=== PATIENT | female | born 2000 | race African-American/Black ===

== ENCOUNTER 2023-08-10 19:45 | Emergency (ER) | payer OTHER, SELFPAY ==
[2023-08-10 19:52] VITALS: BP 116/85
[2023-08-10 20:00] VITALS: BP 106/76
[2023-08-10 20:51] LABS: % Basophils 0.6 % (0-2); % Eosinophils 0.6 % (0-6); % Immature Granulocytes 0.2 % (0-0.5); % Lymphocytes 9.7 % (20.5-51.1); % Monocytes 7.4 % (1.7-9.3); % Neutrophils 81.5 % (42.2-75.2); Absolute Basophils 0.1 10^3/uL (0-0.2); Absolute Eosinophils 0.1 10^3/uL (0-0.7); Absolute Lymphocytes 0.8 10^3/uL (1.2-3.4); Absolute Monocytes 0.6 10^3/uL (0.1-0.6); Absolute Neutrophils 6.8 10^3/uL (1.4-6.5); Hematocrit 35.8 % (37.0-47.0); Hemoglobin 12.8 g/dL (12.0-16.0); Mean Corp Hgb Conc. 35.8 g/dL (33.0-37.0); Nucleated Red Blood Cells % 0 %; Red Blood Cell Count 4.26 10^6/uL (4.20-5.40); Red Cell Dist. Width 11.9 % (11.5-14.5); White Blood Cell Count 8.4 10^3/uL (4.8-10.8)
[2023-08-10 21:11] VITALS: BP 105/67
[2023-08-10 21:38] LABS: HCG, Serum Qualitative Screen Negative
[2023-08-10 21:40] LABS: ALT (SGPT) 17 U/L (0-35); AST (SGOT) 36 U/L (14-36); Albumin 4.2 g/dl (3.5-5.0); Alkaline Phosphatase 51 U/L (38-126); Blood Urea Nitrogen 12 mg/dl (7-17); Calcium 9.2 mg/dl (8.4-10.2); Carbon Dioxide 18 mmol/L (22-30); Chloride 108 mmol/L (98-107); Glucose 78 mg/dl (70-99); Potassium 4.2 mmol/L (3.5-5.1); Sodium 136 mmol/L (135-145); Total Bilirubin 0.4 mg/dl (0.2-1.3); eGFR > 60.00
[2023-08-10 21:50] LABS: Alcohol 93 mg/dl
--- NOTE | 2023-08-10 22:10 | ED.GENMED ---
History of Present Illness
General
Chief Complaint: Alcohol Problem
Source: patient and family (Aunt)
Exam Limitations: none
Time Seen by Provider: 08/10/23 21:15
Travel History
Have you had any contact with someone who has COVID-19?: No
Do you have any symptoms of coronavirus? Fever > 100 degrees, chills, cough, shortness of breath, sore throat, loss of taste or smell, muscle aches, or headache?: No
History of Present Illness
History of Present Illness:
This is a 23 year old female that comes in by ambulance with c/o alcohol intoxication. Aunt states that the patient had texted her that she wanted to speak with her privately. States that when she got up to the bathroom she found the patient on the
floor with 1/4 bottle of shampagne gone and 2 bottles of 4% alcohol empty. Patient states that she started drinking around 12 noon. Denies that this was a suicidal attempt. States that she has had suicidal thoughts since February. States that she
did vomited and has a headache. Denies any fever, chills, chest pain, SOB, abd pain, nausea, diarrhea, dizziness, urinary burning.
Past History
Past History
ED Past Medical History: Seizures
ED Past Surgical History: None
Social History
Tobacco: Non-smoker
Alcohol: Occasional
Personal: Single
Living: with family
Review of Systems
Review of Systems
All Other Systems: ROS reviewed and negative except as documented in HPI and ROS
Constitutional: Reports no symptoms; Denies fever or chills
EENT: Reports no symptoms
Respiratory: Reports no symptoms
Cardiac: Reports no symptoms
ABD/GI: Reports vomiting; Denies abdominal pain, nausea or diarrhea
: Reports no symptoms; Denies dysuria, frequency or urgency
Musculoskeletal: Reports no symptoms
Skin: Reports no symptoms
Neurological: Reports headache; Denies dizzy
Psychiatric: Reports other (Suicidal thoughts)
Phy Exam
General Physical Exam
General Presentation: no apparent distress
General age: appears stated age
General Skin: warm and dry
General Habitus: normal
General Mental: alert
General Hydration: appears well hydrated
ENT Exam
ENT Exam: TM's normal, pharynx normal and neck supple
Eye Exam
Eye Exam: EOMI
Cardiovascular Exam
Cardiovascular Exam: regular rate/rhythm, no edema, no murmur and normal peripheral pulses
Pulmonary Exam
Pulmonary Exam: lungs clear, no respiratory distress, no rales, chest non tender, no crackles, no rhonchi, no wheezing and no cough
Gastrointestinal Exam
Gastrointestinal Exam: normal bowel sounds, non tender, soft, no organomegaly, no pulsatile mass and non distended
Musculoskeletal Exam
Musculoskeletal Exam: full ROM and no edema
Skin Exam
Skin Exam: normal color, warm/dry, no rash and no petechia
Psychiatric Exam
Psychiatric Exam: normal mood/affect
Scores
Withdrawal Assessment of Alcohol
Withdrawal Assessment Completed?: No
Course
Orders/Labs/Results
Orders:
Orders
08/10/23 20:00
Test Result ONCE
08/10/23 20:40
Complete Blood Count/With Diff Urgent
08/10/23 21:16
Acetaminophen Urgent
Comment: ADD ON
Alcohol Urgent
Comprehensive Metabolic Panel Urgent
HCG, Serum Qualitative Screen Urgent
Salicylate Urgent
Comment: ADD ON
08/10/23 22:09
Crisis Consult Urgent
Reason for Consult: Suicidal thoughts
08/10/23 22:10
Urinalysis Reflex To Culture Urgent
Date Specimen was Collected: 08/11/23
Time Specimen was Collected: 00:11
08/10/23 22:13
Add On- LAB Urgent
Tests Added?: Tylenol level and Salicylate level
Abnormal Lab Results
08/10/23 08/10/23
20:40 21:16
Hct 35.8 L %
(37.0-47.0)
Absolute Neuts (auto) 6.8 H 10^3/uL
(1.4-6.5)
Absolute Lymphs (auto) 0.8 L 10^3/uL
(1.2-3.4)
Neutrophils % 81.5 H %
(42.2-75.2)
Lymphocytes % 9.7 L %
(20.5-51.1)
Chloride 108 H mmol/L
(98-107)
Carbon Dioxide 18 L mmol/L
(22-30)
Salicylates < 1.0 L mg/dl
(2.0-20.0)
Acetaminophen < 10 L ug/ml
(10-30)
08/10/23 20:40
08/10/23 21:16
carbon Dioxide slightly low. HCG negative. Alcohol level 93, Negative for Salicylates and Acetaminophen
Vital Signs
Initial and Last Documented VS:
Initial Vital Signs
Temp Pulse Resp BP Pulse Ox
98.1 F 91 15 116/85 100
08/10/23 19:52 08/10/23 19:52 08/10/23 19:52 08/10/23 19:52 08/10/23 19:52
Last Documented Vital Signs
Temp Pulse Resp BP Pulse Ox
98.1 F 97 14 105/67 99
08/10/23 19:52 08/10/23 22:00 08/10/23 22:00 08/10/23 21:11 08/10/23 22:00
MDM/Problems Addressed
Differential Diagnosis Includes:
Alcohol abuse, Suicidal thoughts
MDM/Problems Addressed:
This is a 23 year old female that was found in the bathroom by her Aunt with bottles of alcohol. States that she started drinking around 12 noon. States that she has a headache and vomited. Denies that this was an attempt to hurt herself but states
that she has had thoughts of suicide since February.
Will get labs and have crisis see patient.
Patient was seen by Crisis and she doesn't have a plan. Was given out patient information for follow up. Will discharge home.
Chronic conditions affecting care:
NA
Acute Exacerbation and/or Progression of Chronic Illness:
NA
*Pulse Oximetry
Patient hypoxic: no
*EKG
Interpreted by ED Provider?: NA
Rate: EKG- N/A
*Field Representative Interpretation
Rate: normal
*Critical Care Note
Total Time (30-74mins, 75-104mins- exclusive of procedures): Not Applicable
ED Attending Note
-
Portions of this chart may have been created with voice recognition software.� Occasional wrong word or��sound alike� substitutions may have occurred due to the inherent limitations of voice recognition software.
Discharge Plan
Departure
Patient Disposition: Home (Routine Discharge)
Date of Disposition: 08/11/23
Time of Disposition: 00:23
Patient with high blood pressure during this ER visit?: No
Condition: Good
Covid-19: Not Applicable
Discharge Problem:
Alcohol abuse, Suicidal thoughts
Instructions: Alcohol Use Disorder (DC), Suicide prevention
Referrals:
UNKNOWN - PT DOES,NOT KNOW [Family Provider] -
Activity Restrictions/Additional Instructions:
As discussed, your blood work is normal. Your alcohol level shows that you have been drinking. This most likely cause your vomiting. You have been seen by crisis and given Information for out patient follow up. Please follow up as directed. IF YOU
HAVE ANY OTHER CONCERNS PLEASE RETURN TO THE EMERGENCY ROOM
Interventions
Interventions:
*Risk Screen - Suicide Last Done: 08/10/23 19:52
*General Assessment Last Done: 08/10/23 19:52
*Neglect/Abuse Screening Last Done: 08/10/23 19:52
ED- Fall Risk Assessment Last Done: 08/10/23 23:56
ED- Neurological Assessment Last Done: 08/10/23 23:56
ED-Psychological Assessment Last Done: 08/10/23 23:56
Discharge Date and Time
Print Language: PORTUGUESE
[2023-08-10 22:32] LABS: Acetaminophen < 10 ug/ml (10-30); Salicylate < 1.0 mg/dl (2.0-20.0)
[2023-08-11 00:30] VITALS: BP 110/69
== END 2023-08-11 00:30 | disposition home or self-care (01) ==
LOC: EMR 19:45
PROVIDERS: EMERGENCY PHYSICIAN Emergency Medicine
DX: F10.129 Alcohol abuse with intoxication, unspecified (principal); R45.851 Suicidal ideations; G40.909 Epilepsy, unspecified, not intractable, without status epilepticus
CPT/HCPCS: 99283; 80053; 80143; 80179; 82077; 84703; 85025

== ENCOUNTER 2024-02-05 15:26 | Emergency (ER) | payer OTHER, SELFPAY ==
[2024-02-05 15:30] VITALS: BP 113/73
[2024-02-05 16:06] LABS: % Basophils 0.4 % (0-2); % Eosinophils 1.9 % (0-6); % Immature Granulocytes 0.3 % (0-0.5); % Lymphocytes 8.6 % (20.5-51.1); % Monocytes 4.3 % (1.7-9.3); % Neutrophils 84.5 % (42.2-75.2); Absolute Eosinophils 0.2 10^3/uL (0-0.7); Absolute Lymphocytes 0.8 10^3/uL (1.2-3.4); Absolute Monocytes 0.4 10^3/uL (0.1-0.6); Hematocrit 40.9 % (37.0-47.0); Hemoglobin 13.4 g/dL (12.0-16.0); Mean Corp Hgb Conc. 32.8 g/dL (33.0-37.0); Mean Corpuscular Hgb 29.9 pg (27.0-31.0); Mean Corpuscular Volume 91.3 fL (81.0-99.0); Mean Platelet Volume 11.1 fL (7.4-10.4); Nucleated Red Blood Cells % 0 %; Platelet Count 224 10^3/uL (130-400); Red Blood Cell Count 4.48 10^6/uL (4.20-5.40); Red Cell Dist. Width 11.9 % (11.5-14.5); White Blood Cell Count 9.5 10^3/uL (4.8-10.8)
[2024-02-05 16:16] LABS: HCG, Serum Qualitative Screen Negative
[2024-02-05 16:19] LABS: ALT (SGPT) 18 U/L (0-35); AST (SGOT) 31 U/L (14-36); Albumin 4.6 g/dl (3.5-5.0); Alkaline Phosphatase 52 U/L (38-126); Blood Urea Nitrogen 20 mg/dl (7-17); Calcium 9.4 mg/dl (8.4-10.2); Carbon Dioxide 29 mmol/L (22-30); Chloride 100 mmol/L (98-107); Glucose 136 mg/dl (70-99); Lipase 106 U/L (23-300); Potassium 4.3 mmol/L (3.5-5.1); Sodium 138 mmol/L (135-145); Total Bilirubin 0.3 mg/dl (0.2-1.3); Total Protein 7.3 g/dl (6.3-8.2); eGFR > 60.00
--- NOTE | 2024-02-05 16:34 | ED.GENMED ---
History of Present Illness
General
Chief Complaint: Abdominal Symptoms
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
Exam Limitations: none
Time Seen by Provider: 02/05/24 16:02
Nursing documentation reviewed up to this point in time: agreed with
History of Present Illness
History of Present Illness:
Patient states she woke this AM with nausea. Had 1 episode of vomiting. SInce then she reports no appetite. Denies fever/chills. No diarrhea. Denies abdominal pain.Brought self to ED for eval.
Past History
Past History
ED Past Medical History: Seizures
ED Past Surgical History: None
Social History
Tobacco: Non-smoker
Alcohol: Occasional
Personal: Single
Living: with family
Review of Systems
Review of Systems
Allergies reviewed?: Yes
All Other Systems: ROS reviewed and negative except as documented in HPI and ROS
Constitutional: Reports no symptoms
EENT: Reports no symptoms
Respiratory: Reports no symptoms
Cardiac: Reports no symptoms
ABD/GI: Reports nausea, vomiting and anorexia
: Reports no symptoms
Musculoskeletal: Reports no symptoms
Skin: Reports no symptoms
Neurological: Reports weakness
Psychiatric: Reports no symptoms
Phy Exam
General Physical Exam
General Presentation: well appearing and no apparent distress
General age: appears stated age
General Skin: warm and dry
General Habitus: normal
General Mental: alert
Cardiovascular Exam
Cardiovascular Exam: regular rate/rhythm and no edema
Pulmonary Exam
Pulmonary Exam: lungs clear and no respiratory distress
Gastrointestinal Exam
Gastrointestinal Exam: normal bowel sounds, non tender, soft and no organomegaly
Musculoskeletal Exam
Musculoskeletal Exam: full ROM
Skin Exam
Skin Exam: normal color, warm/dry and no rash
Psychiatric Exam
Psychiatric Exam: normal mood/affect
Course
Orders/Labs/Results
Orders:
Orders
02/05/24 15:40
Test Result ONCE
02/05/24 15:46
Complete Blood Count/With Diff Urgent
Comprehensive Metabolic Panel Urgent
HCG, Serum Qualitative Screen Urgent
Lipase Urgent
02/05/24 16:33
Ondansetron Orally Disint [Zofran Odt (Orally Disintegrating)] 4 mg PO NOW STA
02/05/24 17:45
Urinalysis Reflex To Culture Urgent
Date Specimen was Collected: 02/05/24
Time Specimen was Collected: 15:41
Chlamydia/GC by PCR Urgent
CARLOS Source: Urine
Specimen Description:
Source:: URINE
Date Specimen was Collected: 02/05/24
Time Specimen was Collected: 15:41
Abnormal Lab Results
02/05/24
15:46
MCHC 32.8 L g/dL
(33.0-37.0)
MPV 11.1 H fL
(7.4-10.4)
Absolute Neuts (auto) 8.0 H 10^3/uL
(1.4-6.5)
Absolute Lymphs (auto) 0.8 L 10^3/uL
(1.2-3.4)
Neutrophils % 84.5 H %
(42.2-75.2)
Lymphocytes % 8.6 L %
(20.5-51.1)
BUN 20 H mg/dl
(7-17)
Glucose 136 H mg/dl
(70-99)
02/05/24 15:46
02/05/24 15:46
Vital Signs
Initial and Last Documented VS:
Initial Vital Signs
Temp Pulse Resp BP Pulse Ox
98.3 F 86 18 113/73 99
02/05/24 15:30 02/05/24 15:30 02/05/24 15:30 02/05/24 15:30 02/05/24 15:30
Last Documented Vital Signs
Temp Pulse Resp BP Pulse Ox
98.3 F 72 16 110/66 100
02/05/24 15:30 02/05/24 18:15 02/05/24 18:15 02/05/24 18:15 02/05/24 18:15
*Critical Care Note
Total Time (30-74mins, 75-104mins- exclusive of procedures): Not Applicable
Update Note
Update Note:
Improved with zofran. No vomiting while in dept. Lab results discussed with pateint. No concerning findings on exam today. Abdomen is soft, nontender. She remains afebrile. SHe is discharge home and will follow up with PCP. Given number for
LEAD RECOVERER at her request
ED Attending Note
-
Portions of this chart may have been created with voice recognition software.� Occasional wrong word or��sound alike� substitutions may have occurred due to the inherent limitations of voice recognition software.
Discharge Plan
Departure
Patient Disposition: Home (Routine Discharge)
Date of Disposition: 02/05/24
Time of Disposition: 18:04
Patient with high blood pressure during this ER visit?: No
Condition: Good
Covid-19: Not Applicable
Discharge Problem:
Nausea & vomiting
Instructions: Nausea and Vomiting, Adult (DC)
Prescriptions:
New
ondansetron 4 mg tablet,disintegrating
4 mg PO Q8H PRN (Reason: nausea and vomiting) 3 Days Qty: 9 0RF
Referrals:
Joaquina Keyes MD [Active] - Next open appointment
UNKNOWN - PT DOES,NOT KNOW [Family Provider] -
Stand Alone Forms: Back to School
Interventions
Interventions:
*Risk Screen - Suicide Last Done: 02/05/24 15:30
*General Assessment Last Done: 02/05/24 15:30
*Neglect/Abuse Screening Last Done: 02/05/24 15:30
ED- Fall Risk Assessment Last Done: 02/05/24 16:41
*ED COVID-19 Vaccine History Last Done: 02/05/24 16:39
*Nursing Disposition Last Done: 02/05/24 18:30
AN-Kcdjnp-Ddlxkutmga Assessment Last Done: 02/05/24 16:44
Discharge Date and Time
Discharge Date/Time: 02/05/24 18:30
Print Language: CAPE VERDEAN
[2024-02-05 16:39] VITALS: BMI 20.7
[2024-02-05 16:41] VITALS: BP 99/66
[2024-02-05] MEDS: ZOFRAN ODT (ORALLY DISINTEGRATING) 4 MG PO (17:50)
[2024-02-05 17:56] LABS: Urine Albumin Negative (Neg - Trace); Urine Bilirubin Negative (Negative); Urine Character Clear (Clear); Urine Color Yellow; Urine Glucose Negative (Negative); Urine Ketone Negative (Negative); Urine Leukocyte Negative (Negative); Urine Nitrite Negative (Negative); Urine Occult Blood Negative (Negative); Urine Urobilinogen Negative (Neg - 1+)
--- NOTE | 2024-02-05 18:00 | EDRN ---
Pedro Brown COLLET MAKING MACHINE OPERATOR in room w/ pt at this time.
[2024-02-05 18:15] VITALS: BP 110/66
== END 2024-02-05 18:30 | disposition home or self-care (01) ==
LOC: EMR 15:26
PROVIDERS: EMERGENCY PHYSICIAN Student in an Organized Health Care Education/Training Program
DX: R11.2 Nausea with vomiting, unspecified (principal)
CPT/HCPCS: 99283; 80053; 81003; 83690; 84703; 85025; 87491; 87591